=== PATIENT | male | born 1950 | race Caucasian/White ===

== ENCOUNTER 2020-05-27 10:10 | Outpatient (CLI) | payer MEDICARE, OTHER ==
--- NOTE | 2020-05-27 11:41 | ULT ---
Exam: Thyroid ultrasound HISTORY: Thyrotoxicosis. COMPARISON: None. FINDINGS: Thyroid isthmus: 0.5 cm Right thyroid lobe 4.9 x 1.9 x 1.4 cm Left thyroid lobe: 5.0 x 2.3 x 1.6 cm Thyroid nodules: There are no solid or cystic nodules in the thyroid gland. IMPRESSION: No evidence of a solid or cystic nodule in the thyroid gland. TI-RADS score TR1, negative. Transcribed Date/Time: 05/27/2020 11:51 AM
== END 2020-05-27 10:11 | disposition home or self-care (01) ==
LOC: BICULT 10:10
PROVIDERS: ATTEND Family Medicine
DX: Z01.818 Encounter for other preprocedural examination (principal); E05.80 Other thyrotoxicosis without thyrotoxic crisis or storm
CPT/HCPCS: 76536

== ENCOUNTER 2020-07-20 08:25 | Outpatient (CLI) | payer MEDICARE, OTHER ==
--- NOTE | 2020-07-21 09:00 | NM ---
RADIOIODINE THYROID UPTAKE AND SCAN: HISTORY: Hyperthyroidism. RADIOPHARMACEUTICAL: 260 mCi Iodine-123 administered orally. FINDINGS: There is homogeneous tracer distribution to both lobes of the thyroid gland without focal cold or sharona d nodules. The 24-hour uptake measures 32% (normal 10-30%). 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 POS: AH
== END 2020-07-20 08:26 | disposition home or self-care (01) ==
LOC: NM 08:25
DX: R94.6 Abnormal results of thyroid function studies (principal)
CPT/HCPCS: 78014; A9516

== ENCOUNTER 2020-10-06 09:07 | Outpatient (CLI) | payer MEDICARE, OTHER ==
[2020-10-06] MEDS ORDERED: Magnevist 469MG/ML 20 ML VIAL ONE (14:10)
== END 2020-10-06 09:08 | disposition home or self-care (01) ==
LOC: BICMRI 09:07
PROVIDERS: ATTEND Family Medicine
DX: G45.9 Transient cerebral ischemic attack, unspecified (principal); R55 Syncope and collapse
CPT/HCPCS: 70553; 82565; A9579

== ENCOUNTER 2024-01-29 08:19 | Outpatient (CLI) | payer MEDICARE, OTHER | END 2024-01-29 08:20 | disposition home or self-care (01) | LOC: RAD 08:19 | PROVIDERS: ATTEND Internal Medicine Critical Care Medicine | DX: R06.00 Dyspnea, unspecified (principal) | CPT/HCPCS: 71046 ==